=== PATIENT | male | born 1970 | race Caucasian/White ===

== ENCOUNTER 2019-04-06 23:19 | Emergency (ER) | payer OTHER, MEDICARE ==
[~2019-04-06 23:19] MED LIST: ISOVUE-370 76%-LOCM 1 ML ONE
[2019-04-07 00:06] LABS: #Eosinphils 0.2 thou/uL (0.0-0.7); #Lymphocytes 3.4 thou/uL (1.20-3.40); #Monocytes 0.5 thou/uL (0.11-0.59); #Neutrophils 3.1 thou/uL (1.40-6.50); %Basophils 0.2 % (0.0-1.0); %Eosinophils 2.5 % (0.0-10.0); %Lymphocytes 47.9 % (21.0-51.0); %Monocytes 6.3 % (0.0-10.0); %Neutrophils 43.1 % (42.0-75.0); Hemoglobin 16.8 g/dL (14.0-18.0); Mean Corpuscular HGB CONC 33.4 g/dL (32.0-36.0); Mean Corpuscular Hemoglobin 28.1 pg (27.0-31.0); Mean Corpuscular Volume 83.9 fL (78.0-98.0); Mean Platelet Volume 7.6 fL (7.4-10.4); Platelet Count 167 thou/uL (130-400); RBC Distribution Width 12.5 % (11.5-14.5); Red Blood Cell (RBC) Count 5.99 mill/uL (4.70-6.10); White Blood Cell (WBC) Count 7.2 thou/uL (4.8-10.8)
[2019-04-07] MEDS ORDERED: Famotidine/PF 20 mg/2ml Vial ONE (00:09)
[2019-04-07] MEDS ORDERED: methylPREDNISolone Sod Succ/PF 125 MG/2 ML VIAL ONE (00:09)
[2019-04-07] MEDS ORDERED: diphenhydrAMINE 50 MG/ML VIAL ONE (00:09)
[2019-04-07 00:25] LABS: ALT (SGPT) 111 U/L (8-55); AST (SGOT) 55 U/L (5-34); Albumin 4.1 g/dL (3.5-5.0); Alkaline Phosphatase 101 U/L (40-150); Anion Gap 13 mmol/L (10-20); BUN (Urea Nitrogen) 13 mg/dL (8.9-20.6); Bilirubin, Total 0.7 mg/dL (0.2-1.2); Calc. Creatinine Clearance 0 mL/min (70-130); Calcium 9.4 mg/dL (7.8-10.44); Carbon Dioxide 23 mmol/L (22-29); Chloride 104 mmol/L (98-107); Estimated GFR-MDRD Greater than 90; Globulin 3.1 g/dL (2.4-3.5); Glucose 118 mg/dL (70-105); Potassium 3.8 mmol/L (3.5-5.1); Protein, Total 7.2 g/dL (6.0-8.3); Sodium 136 mmol/L (136-145)
[2019-04-07] MEDS ORDERED: Ondansetron PF 4 MG/2 ML Vial ONE (00:29)
[2019-04-07] MEDS ORDERED: Proparacaine 0.5% Opth 15 ML BOT ONE (01:20)
--- NOTE | 2019-04-07 07:20 | CT ---
PRELIMINARY REPORT/[facility]/EMERGENCY AFTER HOURS PROCEDURE: EXAM: CT Head Without Contrast EXAM DATE/TIME: 04/07/2019 12:50 AM CLINICAL HISTORY: 48 years old, male; Visual disturbance; Patient HX: [id number] presents to the ED via EMS for evaluation of right eye vision loss onset 20 min [employer]. Right sided weakness TECHNIQUE: Imaging protocol: Computed tomography images of the head without contrast. COMPARISON: No relevant prior studies available. FINDINGS: Brain: Normal. No hemorrhage. Unremarkable white matter. No mass effect. Ventricles: Normal. No ventriculomegaly. Bones/joints: Unremarkable. No acute fracture. Sinuses: Visualized sinuses are unremarkable. No fluid levels. Mastoid air cells: Visualized mastoid air cells are well aerated. No mastoid effusion. Soft tissues: Unremarkable. IMPRESSION: No acute intracranial abnormality. Thank you for allowing us to participate in the care of your patient. Dictated and Authenticated by: Noemi Daigle MD 04/07/2019 1:58 AM Central Time ([place] & [place]) FINAL REPORT HEAD CT WITHOUT CONTRAST: Date: 04/07/2019 COMPARISON: 01/26/2009. HISTORY: Headache and right-sided vision loss. FINDINGS: I agree with the preliminary report. The visualized paranasal sinuses and mastoid air cells are well aerated. No displaced calvarial fracture, intracranial hemorrhage, midline shift, or mass effect. IMPRESSION: No acute findings. Code QA Transcribed Date/Time: 04/07/2019 8:10 AM
--- NOTE | 2019-04-07 07:40 | CT ---
PRELIMINARY REPORT/[facility]/EMERGENCY AFTER HOURS PROCEDURE: EXAM: CT Angiography Head Without And With Contrast EXAM DATE/TIME: 04/07/2019 12:50 AM CLINICAL HISTORY: 48 years old, male; Patient HX: [id number] presents to the ED via EMS for evaluation of right eye vision loss onset 20 min [employer]. PT also C/O chest pain, right sided headache described as pressure, lle tingling, and difficulty standing/ambulating. PT describes vision loss as a bright white light. PT re ports his vision is slowly returning. PT denies pain to right eye. PT denies right sided weakness. PT repor ts he has impaired vision to his right eye at baseline that cannot be corrected by glasses. PT reports H X of cataracts to left eye. TECHNIQUE: Imaging protocol: Computed tomographic angiography images of the head without and with intravenous contrast using CT angiography protocol. Coronal and sagittal reformatted images were created and reviewed. 3D rendering: MIP reconstructed images were created and reviewed. COMPARISON: No relevant prior studies available. FINDINGS: Right internal carotid artery: Unremarkable. Intracranial segment is patent with no significant stenosis. No aneurysm. Right anterior cerebral artery: Unremarkable. No occlusion or significant stenosis. No aneurysm. Right middle cerebral artery: Unremarkable. No occlusion or significant stenosis. No aneurysm. Right posterior cerebral artery: Unremarkable. No occlusion or significant stenosis. No aneurysm. Right vertebral artery: Unremarkable. No occlusion or significant stenosis. No aneurysm. Left internal carotid artery: Unremarkable. Intracranial segment is patent with no significant stenosis. No aneurysm. Left anterior cerebral artery: Unremarkable. No occlusion or significant stenosis. No aneurysm. Left middle cerebral artery: Unremarkable. No occlusion or significant stenosis. No aneurysm. Left posterior cerebral artery: Unremarkable. No occlusion or significant stenosis. No aneurysm. Left vertebral artery: Unremarkable. No occlusion or significant stenosis. No aneurysm. Basilar artery: Unremarkable. No occlusion or significant stenosis. No aneurysm. HEAD: Brain: Unremarkable. No hemorrhage. No significant white matter disease. No edema. Ventricles: Normal. No ventriculomegaly. Bones/joints: Unremarkable. No acute fracture. Sinuses: Visualized sinuses are normal. No fluid levels. Mastoid air cells: Visualized mastoids are normal. No mastoid effusion. Soft tissues: Unremarkable. IMPRESSION: No acute findings. EXAM: CT Angiography Neck With Contrast EXAM DATE/TIME: 04/07/2019 12:50 AM CLINICAL HISTORY: 48 years old, male; Patient HX: [id number] presents to the ED via EMS for evaluation of right eye vision loss onset 20 min [employer] prevention [employer]. PT also C/O chest pain, right sided headache described as pressure, lle tingling, and difficulty standing/ambulating. PT describes vision loss as a bright white light. PT re ports his vision is slowly returning. PT denies pain to right eye. PT denies right sided weakness. PT repor ts he has impaired vision to his right eye at baseline that cannot be corrected by glasses. PT reports H X of cataracts to left eye. TECHNIQUE: Imaging protocol: Axial computed tomographic angiography images of the neck with intravenous contrast using CT angiography protocol. Coronal and sagittal reformatted images were created and reviewed. 3D rendering: MIP reconstructed images were created and reviewed. COMPARISON: No relevant prior studies available. FINDINGS: VASCULATURE: Right common carotid artery: Unremarkable. No stenosis. No dissection or occlusion. Right internal carotid artery: Unremarkable extracranial segment. No stenosis. No dissection or occlusion. Right external carotid artery: Unremarkable. No occlusion or stenosis of the origin. Right vertebral artery: Unremarkable. No stenosis. No dissection or occlusion. Left common carotid artery: Unremarkable. No stenosis. No dissection or occlusion. Left internal carotid artery: Unremarkable extracranial segment. No stenosis. No dissection or occlusion. Left external carotid artery: Unremarkable. No occlusion or stenosis of the origin. Left vertebral artery: Unremarkable. No stenosis. No dissection or occlusion. NECK: Bones/joints: No acute fracture. Soft tissues: Normal. No significant soft tissue swelling. IMPRESSION: No acute findings. COMMENT: Reference per NASCET criteria for degree of stenosis: Mild: less than 50% stenosis. Moderate: 50- 69% stenosis. Severe: 70-94% stenosis. Near occlusion: 95-99% stenosis. Thank you for allowing us to participate in the care of your patient. Dictated and Authenticated by: Noemi Daigle MD 04/07/2019 1:56 AM Central Time ([place] & [place]) FINAL REPORT CT ANGIOGRAM OF THE HEAD CT ANGIOGRAM OF THE NECK: Date: 04/07/19 HISTORY: Headache on the right, right-sided vision loss. FINDINGS: I agree with the preliminary report. The visualized lung apices are unremarkable. The visualized paranasal sinuses and mastoid air cells are well aerated. The retroantral fat and the parapharyngeal fat is clear bilaterally. No lymphadenopathy noted in the neck. Limited assessment of the aerodigestive tract appears unremarkable. Origins of the great vessels appear unremarkable. Bilateral vertebral arteries are patent. Left verte bral artery is dominant. On the basis of NASCET criteria, no hemodynamically significant stenosis is seen involving the internal carotid artery or common carotid artery on either side. The internal carotid artery is tortuous distally bilaterally. The basilar artery and its branches are patent. There is no saccular aneurysm, high-grade stenosis, o r vascular occlusion seen involving the posterior circulation. The bifurcation of the internal carotid artery appears unremarkable bilaterally. The M1 segment and t he MCA bifurcation appears grossly unremarkable bilaterally as well. Distal MCA and FANNY branches are unremarkable. There are degenerative changes noted within the cervical spine, primarily at C5-6 and C6-7. No discre te lytic or blastic bone lesion. IMPRESSION: No acute findings within the head or neck. Code QA Transcribed Date/Time: 04/07/2019 8:27 AM
--- NOTE | 2019-04-07 08:41 | CT ---
PRELIMINARY REPORT/[facility]/EMERGENCY AFTER HOURS PROCEDURE: EXAM: CT Angiography Chest With Contrast EXAM DATE/TIME: 04/07/2019 12:50 AM CLINICAL HISTORY: 48 years old, male; Type not specified; Abdominal pain; Generalized; Patient HX: [id number] presents to the ED via EMS for evaluation of right eye vision loss onset 20 min [employer]. PT also C/O chest pain, right si ded headache described as pressure, lle tingling, and difficulty standing/ambulating. PT describes vi snehal loss as a bright white light. PT reports his vision is slowly returning. PT denies pain to right eye. PT denies right sided weakness. PT reports he has impaired vision to his right eye at baseline that cannot be corrected by glasses. PT reports HX of cataracts to left eye TECHNIQUE: Imaging protocol: Axial computed tomographic angiography images of the chest with intravenous contras t using CT angiography protocol. Coronal and sagittal reformatted images were created and reviewed. 3D rendering: MIP reconstructed images were created and reviewed. COMPARISON: No relevant prior studies available. FINDINGS: Pulmonary arteries: Limited contrast enhancement of the pulmonary arteries. Within this limitation, t here is no evidence of a pulmonary embolism. Aorta: No evidence of a thoracic aortic dissection or aneurysm. Lungs: Extreme apices not included in [id number]. No consolidations. Pleural space: No pneumothorax or pleural effusion. Heart: The heart is within normal size limits. No abdnormal pericardial effusion. Lymph nodes: No lymphadenopathy. Bones/joints: No suspicious bone lesions or fracture. Soft tissues: No acute finding. IMPRESSION: No evidence of a thoracic aortic dissection or aneurysm. EXAM: CT Angiography Abdomen With Contrast EXAM DATE/TIME: 04/07/2019 12:50 AM CLINICAL HISTORY: 48 years old, male; Type not specified; Abdominal pain; Generalized; Patient HX: [id number] presents to the ED via EMS for evaluation of right eye vision loss onset 20 min [employer]. PT also C/O chest pain, right si ded headache described as pressure, lle tingling, and difficulty standing/ambulating. PT describes vi snehal loss as a bright white light. PT reports his vision is slowly returning. PT denies pain to right eye. PT denies right sided weakness. PT reports he has impaired vision to his right eye at baseline that cannot be corrected by glasses. PT reports HX of cataracts to left eye TECHNIQUE: Imaging protocol: Axial computed tomographic angiography images of the abdomen with intravenous contr ast material. Coronal and sagittal reformatted images were created and reviewed. 3D rendering: MIP reconstructed images were created and reviewed. COMPARISON: No relevant prior studies available. FINDINGS: VASCULATURE: Aorta: No aortic aneurysm. No aortic dissection. Celiac trunk and mesenteric arteries: No occlusion or significant stenosis. Renal arteries: No occlusion or significant stenosis. ABDOMEN: Liver: No liver masses. Gallbladder and bile ducts: Surgical changes of cholecystectomy. No ductal dilation. Pancreas: No pancreatic mass or ductal dilation. Spleen: No splenic masses. Adrenals: No adrenal nodules. Kidneys and ureters: No enhancing mass or hydronephrosis. Stomach and bowel: No obstruction. No mucosal thickening. Intraperitoneal space: No free air. No significant fluid collection. Bones/joints: No acute fracture. No dislocation. Soft tissues: Unremarkable. Lymph nodes: No enlarged lymph nodes. IMPRESSION: No evidence of abdominal aortic aneurysm or dissection. Thank you for allowing us to participate in the care of your patient. Dictated and Authenticated by: Jacquelyn Salmon MD 04/07/2019 3:10 AM Central Time ([place] & [place]) FINAL REPORT CTA CHEST WITH IV CONTRAST AND 3D POSTPROCESSING CTA ABDOMEN WITH IV CONTRAST AND 3D POSTPROCESSING: Date: 04/06/19 IMPRESSION: I agree with the preliminary report given by Zaira. POS: OFF
== END 2019-04-07 04:58 | disposition short-term general hospital (02) ==
LOC: ERS 23:19
DX: G45.9 Transient cerebral ischemic attack, unspecified (principal); G47.30 Sleep apnea, unspecified; Z79.899 Other long term (current) drug therapy
CPT/HCPCS: 36415; 70450; 70496; 70498; 71275; 80053; 84484; 85025; 93005; 94760; 96361; 96374; 96375; J1200; J2405; J2930; Q9966; S0028

== ENCOUNTER 2019-05-25 09:27 | Outpatient (CLI) | payer OTHER, MEDICARE ==
--- NOTE | 2019-05-25 10:25 | RAD ---
2 VIEWS CHEST: Date: 05/25/19 COMPARISON: None. HISTORY: Shortness of breath. FINDINGS: There is no pneumothorax, pleural fluid, focal consolidation, or alveolar edema. Heart and mediastina l contours unremarkable. IMPRESSION: No acute findings. POS: H
== END 2019-05-25 09:28 | disposition home or self-care (01) ==
LOC: RAD 09:27
PROVIDERS: ATTEND Internal Medicine Critical Care Medicine
DX: R06.00 Dyspnea, unspecified (principal)
CPT/HCPCS: 71046